=== PATIENT | female | born 1930 | race Caucasian/White ===

== ENCOUNTER 2017-08-11 14:14 | Emergency (ER) | payer OTHER, BC ==
[~2017-08-11] VITALS: Ht 152.4 cm; Wt 76.7 kg
[~2017-08-11 14:14] MED LIST: [UNRECOGNIZED DRUG - OTHER]
== END 2017-08-12 00:33 | disposition left against medical advice (07) ==
LOC: ER 14:14
DX: S70.01XA Contusion of right hip, initial encounter (principal); S30.0XXA Contusion of lower back and pelvis, initial encounter; W10.8XXA Fall (on) (from) other stairs and steps, initial encounter; Y93.89 Activity, other specified; Y92.018 Other place in single-family (private) house as the place of occurrence of the external cause; Y99.8 Other external cause status